=== PATIENT | male | born 1980 | race Caucasian/White ===

== ENCOUNTER 2022-07-13 21:36 | Emergency (ER) | payer OTHER ==
[2022-07-13] MEDS ORDERED: Ketorolac Tromethamine 30 MG/ML VIAL ONE (22:00)
[2022-07-13] MEDS ORDERED: Cyclobenzaprine 10 MG TAB ONE (22:00)
== END 2022-07-13 23:30 ==
LOC: CSHERS 21:36
DX: R10.32 Left lower quadrant pain (principal); Z87.891 Personal history of nicotine dependence
CPT/HCPCS: 74176; 96374; J1885